=== PATIENT | male | born 1960 | race Caucasian/White ===

== ENCOUNTER 2017-04-27 10:46 | Emergency (ER) | payer MEDICAID ==
[~2017-04-27] VITALS: Ht 172.7 cm; Wt 59.0 kg
[~2017-04-27 10:46] MED LIST: ASPI-41 PO; ATOR10TA PO; CHOL100010 PO; COL100C PO; INSU100C4 SQ; LANTUS SQ; METF500T PO; NICO-687 TD; NORCO10T PO
[2017-04-27 11:10] VITALS: BP 108/69
[2017-04-27] MEDS ORDERED: HYDROcodone/acetaminophen 10/325mg tab PO ONE (11:50)
[2017-04-27] MEDS ORDERED: PENI500T2 PO (11:55)
[2017-04-27] MEDS ORDERED: HYDR-565 PO (11:55)
== END 2017-04-27 12:11 | disposition home or self-care (01) ==
LOC: ER 10:47
DX: S02.5XXA Fracture of tooth (traumatic), initial encounter for closed fracture (principal); K02.9 Dental caries, unspecified; I10 Essential (primary) hypertension; K21.9 Gastro-esophageal reflux disease without esophagitis; E11.9 Type 2 diabetes mellitus without complications; F17.200 Nicotine dependence, unspecified, uncomplicated; Z86.73 Personal history of transient ischemic attack (TIA), and cerebral infarction without residual deficits; Z90.49 Acquired absence of other specified parts of digestive tract; Z79.82 Long term (current) use of aspirin; Z79.4 Long term (current) use of insulin; Z79.84 Long term (current) use of oral hypoglycemic drugs; Z79.899 Other long term (current) drug therapy; X58.XXXA Exposure to other specified factors, initial encounter; Y93.89 Activity, other specified; Y92.89 Other specified places as the place of occurrence of the external cause; Y99.8 Other external cause status
CPT/HCPCS: 99283

== ENCOUNTER 2019-06-19 11:17 | Emergency (ER) | payer MEDICAID ==
[~2019-06-19] VITALS: Ht 172.7 cm; Wt 49.5 kg
[2019-06-19 11:38] VITALS: BP 108/73
[2019-06-19 12:19] LABS: CLARITY,URINE CLOUDY (Clear); COLOR,URINE YELLOW (Yellow); GLUCOSE, URINE >=1000 mg/dl (Neg); KETONES,URINE TRACE mg/dl (Neg); LEUKOCYTE ESTERASE ,URINE NEGATIVE (Neg); NITRITES, URINE NEGATIVE (Neg); OCCULT BLOOD,URINE MODERATE (Neg); PROTEIN,URINE TRACE mg/dl (Neg); UA COLLECTION TYPE CLN CATCH MIDSTREAM; UROBILINOGEN,URINE 0.2 E.U/dL (0.2-1.0)
[2019-06-19 12:25] LABS: BACTERIA,URINE FEW /HPF (Neg); RBC,URINE 0-2 /HPF (0-2); SQUAMOUS EPITHELIAL CELL,UR FEW /LPF (FEW); WBC CLUMPS,URINE MANY /HPF (NEGATIVE); WBC,URINE TNTC /HPF (0-4)
[2019-06-19] MEDS ORDERED: magnesium citrate 296ml oral solution PO ONE (12:35)
[2019-06-19] MEDS ORDERED: docusate sod 100mg capsule PO ONE (12:35)
[2019-06-19] MEDS ORDERED: LIDOcaine 2% 10ml TOPICAL JELLY (Urojet) TP ONE (12:50)
== END 2019-06-19 14:12 | disposition home or self-care (01) ==
LOC: ER 11:17
DX: K59.00 Constipation, unspecified (principal); R33.9 Retention of urine, unspecified; I10 Essential (primary) hypertension; K21.9 Gastro-esophageal reflux disease without esophagitis; E11.9 Type 2 diabetes mellitus without complications; Z86.73 Personal history of transient ischemic attack (TIA), and cerebral infarction without residual deficits; Z72.89 Other problems related to lifestyle; Z90.49 Acquired absence of other specified parts of digestive tract; Z79.82 Long term (current) use of aspirin; Z79.4 Long term (current) use of insulin; Z79.84 Long term (current) use of oral hypoglycemic drugs; Z79.899 Other long term (current) drug therapy
CPT/HCPCS: 51702; 76870; 81001; 87077; 87088; 87186; 99284

== ENCOUNTER 2019-06-23 08:36 | Emergency (ER) | payer MEDICAID ==
[~2019-06-23] VITALS: Ht 172.7 cm; Wt 48.7 kg
[2019-06-23 08:52] VITALS: BP 100/67
[2019-06-23] MEDS ORDERED: nitrofuran/nitrofuran macrocrysal 100 MG capsule PO ONE (09:35)
[2019-06-23] MEDS ORDERED: FLO0.4C PO (09:38)
[2019-06-23] MEDS ORDERED: NITR100C PO (09:38)
== END 2019-06-23 09:50 | disposition home or self-care (01) ==
LOC: ER 08:36
DX: T83.098A Other mechanical complication of other urinary catheter, initial encounter (principal); N39.0 Urinary tract infection, site not specified; I25.10 Atherosclerotic heart disease of native coronary artery without angina pectoris; I10 Essential (primary) hypertension; I25.2 Old myocardial infarction; K21.9 Gastro-esophageal reflux disease without esophagitis; E11.9 Type 2 diabetes mellitus without complications; F17.200 Nicotine dependence, unspecified, uncomplicated; Z90.49 Acquired absence of other specified parts of digestive tract; Z86.73 Personal history of transient ischemic attack (TIA), and cerebral infarction without residual deficits; Z72.89 Other problems related to lifestyle; Z79.82 Long term (current) use of aspirin; Z79.4 Long term (current) use of insulin; Z79.84 Long term (current) use of oral hypoglycemic drugs; Z79.899 Other long term (current) drug therapy; Y84.6 Urinary catheterization as the cause of abnormal reaction of the patient, or of later complication, without mention of misadventure at the time of the procedure; Y92.89 Other specified places as the place of occurrence of the external cause
CPT/HCPCS: 99284

== ENCOUNTER 2019-06-25 07:41 | Inpatient (IN) | payer MEDICAID ==
[2019-06-25] VITALS (10 sets, daily range): BP systolic 91–134; BP diastolic 51–84
[~2019-06-25] VITALS: Ht 172.7 cm; Wt 61.9 kg
[~2019-06-25 07:41] MED LIST changes: +FLO0.4C PO; +NITR100C PO
[2019-06-25] MEDS ORDERED: CefTRIAXone 2gm/D5W 50ml 50 ML IV ONE (08:00)
[2019-06-25] MEDS ORDERED: normal saline 1000ML IV soln IV ONE (08:00)
--- NOTE | 2019-06-25 08:04 | NUR ---
DR LINDQUIST IN ROOM TO EVAL PT. IV ACCESS AND BLOOD DRAW FOR SEPTIC WORKUP COMPLETED. PT PLACED ON HANY RIZVI.
--- NOTE | 2019-06-25 08:08 | NUR ---
PT GIVEN FLUID BOLUSE THROUGH FLUID WARMER.
[2019-06-25] MEDS ORDERED: diltiazem 5mg/ml 5ml inj. IV ONE (08:10)
[2019-06-25 08:29] LABS: BASOPHILS # (AUTO) 0.1 X10'3 (0-0.2); BASOPHILS % (AUTO) 0.4 % (0-1); EOSINOPHILS # (AUTO) 0.5 X10'3 (0-0.9); EOSINOPHILS % (AUTO) 1.9 % (0-6); HEMOGLOBIN 15.1 g/dl (14.0-17.9); LYMPHOCYTES # (AUTO) 0.3 X10'3 (1.1-4.8); LYMPHOCYTES % (AUTO) 1.3 % (21-51); MEAN CORPUSCULAR HEMOGLOBIN 30.6 PG (27.0-31.0); MEAN CORPUSCULAR HGB CONC 33.5 g/dL (33.0-36.5); MEAN CORPUSCULAR VOLUME 91.3 FL (78-98); MEAN PLATELET VOLUME 10.1 FL (7.4-10.4); MONOCYTES # (AUTO) 0.4 X10'3 (0-0.9); MONOCYTES % (AUTO) 1.7 % (2-12); NEUTROPHILS # (AUTO) 23.4 X10'3 (1.8-7.7); NEUTROPHILS % (AUTO) 94.7 % (42-75); PLATELET COUNT 313 X10'3 (140-440); RED BLOOD COUNT 4.93 X10'6 (4.70-6.10); RED CELL DISTRIBUTION WIDTH 13.1 % (11.5-14.5); WHITE BLOOD COUNT 24.7 X10'3 (4.5-11.0)
[2019-06-25 08:43] LABS: ALANINE AMINOTRANSFERASE 22 U/L (12-78); ALBUMIN/GLOBULIN RATIO 0.4 (1.1-1.5); ALKALINE PHOSPHATASE 186 IU/L (46-116); ANION GAP 22 (8-16); ASPARTATE AMINO TRANSFERASE 37 U/L (10-37); BILIRUBIN,TOTAL 0.8 MG/DL (0.1-1.0); BLOOD UREA NITROGEN 71 MG/DL (7-18); CALCIUM 10.1 MG/DL (8.5-10.1); CHLORIDE 90 MMOL/L (99-107); CREATININE 2.37 MG/DL (0.60-1.10); MAGNESIUM 2.7 MG/DL (1.5-2.4); POTASSIUM 3.6 MMOL/L (3.5-5.1); SODIUM 129 MMOL/L (135-145); TOTAL CARBON DIOXIDE 17.4 MMOL/L (24-32); TOTAL PROTEIN 7.3 G/DL (6.4-8.2); eGFR 28 ML/MIN
[2019-06-25 08:44] LABS: PARTIAL THROMBOPLASTIN TIME 34 SECONDS (22-32)
[2019-06-25 08:45] LABS: GLUCOSE 489 MG/DL (70-104)
[2019-06-25 09:13] LABS: TOTAL CELLS COUNTED 100
[2019-06-25 09:14] LABS: PLATELET ESTIMATE NORMAL; TOXIC GRANULATION 1+
[2019-06-25 09:30] LABS: CLARITY,URINE SLIGHTLY CLOUDY (Clear); COLOR,URINE YELLOW (Yellow); GLUCOSE, URINE >=1000 mg/dl (Neg); KETONES,URINE TRACE mg/dl (Neg); LEUKOCYTE ESTERASE ,URINE TRACE (Neg); NITRITES, URINE NEGATIVE (Neg); OCCULT BLOOD,URINE LARGE (Neg); PROTEIN,URINE 30 mg/dl (Neg)
[2019-06-25 09:32] LABS: UA COLLECTION TYPE FOLEY CATH
--- NOTE | 2019-06-25 09:33 | NUR ---
DR BOOKER IN ROOM TO EVAL PT FOR ADMIT.
[2019-06-25 09:37] LABS: BACTERIA,URINE 1+ /HPF (Neg); RBC,URINE 0-2 /HPF (0-2)
[2019-06-25 09:38] LABS: MUCUS STRANDS FEW /LPF (Neg); SQUAMOUS EPITHELIAL CELL,UR NONE SEEN /LPF (FEW); WBC CLUMPS,URINE FEW /HPF (NEGATIVE)
[2019-06-25 09:39] LABS: AMORPHOUS URATES 2+
[2019-06-25] MEDS ORDERED: ondansetron/PF 4mg/2ml inj IV PRN (09:45)
[2019-06-25] MEDS ORDERED: potassium Cl 20 mEq SR tablet PO PRN ×2 (09:45)
[2019-06-25] MEDS ORDERED: magnesium Cl slow-release 64mg tablet PO PRN (09:45)
[2019-06-25] MEDS ORDERED: magnesium 2GM in 50ml NS 50 ML IV PRN ×2 (09:45→21:45)
[2019-06-25] MEDS ORDERED: acetaminophen 325mg tablet PO PRN ×2 (09:45)
[2019-06-25] MEDS ORDERED: magnesium 4gm in 100ml NS 100 ML IV PRN ×2 (09:45→21:45)
[2019-06-25] MEDS ORDERED: sodium phosphate inj. 30 MMOL in dextrose 5%-water 250 ML IV PRN (09:45)
[2019-06-25] MEDS ORDERED: Neutra Phos packet PO PRN (09:45)
[2019-06-25] MEDS ORDERED: sodium phosphate inj. 15 MMOL in dextrose 5%-water 250 ML IV PRN (09:45)
[2019-06-25] MEDS ORDERED: LIDOcaine 2% 10ml TOPICAL JELLY (Urojet) TP ONE (09:45)
[2019-06-25] MEDS ORDERED: normal saline 1000ml 1,000 ML IV ONE (09:50)
[2019-06-25] MEDS: normal saline 1000ml 1,000 ML IV SCH ×2 (10:30→22:16)
[2019-06-25] MEDS: K, MAG and/or Phos replacement - Verify level? MC SCH (10:56)
[2019-06-25] MEDS ORDERED: NITR100C PO (12:11)
[2019-06-25] MEDS ORDERED: FLO0.4C PO (12:11)
--- NOTE | 2019-06-25 13:00 | NUR ---
Received report from Rita RN. Awaiting patient's arrival to the unit
--- NOTE | 2019-06-25 14:07 | NUR ---
DM Consult: Pt hx DM A1C pending at this time; last A1C 2013 admit. Addendum: 06/25/19 at [address] Amended: Links added.
[2019-06-25 14:15] LABS: HEMOGLOBIN A1C 11.8 % (4.5-6.2)
[2019-06-25] MEDS ORDERED: morphine 4 MG/ML inj SYRINge ONE (14:27)
[2019-06-25] MEDS ORDERED: dextrose ORAL solution 15 GM/59 ML bottle PO PRN ×2 (14:55)
[2019-06-25] MEDS ORDERED: MESSAGE TO PHARMACY PO ONE (14:55)
[2019-06-25] MEDS ORDERED: dextrose 50%-water 50ml dispensing syringe IV PRN (14:55)
[2019-06-25] MEDS ORDERED: morphine 2 MG/ML inj. syringe IV PRN (14:55)
[2019-06-25] MEDS ORDERED: insulin regular, human U-100 3ml vial - multi-dose SQ SCH (14:55)
[2019-06-25] MEDS ORDERED: glucagon, human recombinant 1mg kit SUBCUT PRN (14:55)
[2019-06-25] MEDS ORDERED: ringers solution, lacted 1,000 ML IV ONE (15:10)
[2019-06-25] MEDS: vancomycin/NS 1 GM ADD-VANTAGE 250 ML IV SCH (15:29)
[2019-06-25 15:38] LABS: LIPASE 296 U/L (73-393)
[2019-06-25] MEDS: piperacillin/tazo 3.375gm/50ml 50 ML IV SCH (16:51)
[2019-06-25] MEDS: insulin Lispro (HumaLOG) vial - multi-dose SQ SCH (17:31)
--- NOTE | 2019-06-25 18:26 | NUR ---
Problems reprioritized. Patient report given, questions answered & plan of care reviewed with Adela GALO.
[2019-06-25] MEDS: normal saline 1000ml 1,000 ML IV PRN ×2 (19:01→20:17)
[2019-06-25] MEDS ORDERED: albumin (Human) 5% 250ml 250 ML IV ONE ×4 (20:10→20:28)
[2019-06-25] MEDS ORDERED: acetaminophen 1,000mg/100ml IV 100 ML IV ONE (20:25)
[2019-06-25] MEDS: heparin, porcine 5000 units/ml vial SQ SCH (20:31)
[2019-06-25 21:23] LABS: BASOPHILS % (AUTO) 0.4 % (0-1); EOSINOPHILS # (AUTO) 0.1 X10'3 (0-0.9); EOSINOPHILS % (AUTO) 0.6 % (0-6); HEMATOCRIT 30.6 % (42.0-52.0); HEMOGLOBIN 10.6 g/dl (14.0-17.9); LYMPHOCYTES # (AUTO) 0.2 X10'3 (1.1-4.8); LYMPHOCYTES % (AUTO) 2.3 % (21-51); MEAN CORPUSCULAR HEMOGLOBIN 30.9 PG (27.0-31.0); MEAN CORPUSCULAR HGB CONC 34.7 g/dL (33.0-36.5); MEAN CORPUSCULAR VOLUME 88.8 FL (78-98); MEAN PLATELET VOLUME 9.1 FL (7.4-10.4); MONOCYTES # (AUTO) 0.1 X10'3 (0-0.9); MONOCYTES % (AUTO) 1.3 % (2-12); NEUTROPHILS % (AUTO) 95.4 % (42-75); PLATELET COUNT 189 X10'3 (140-440); RED BLOOD COUNT 3.45 X10'6 (4.70-6.10); WHITE BLOOD COUNT 9.4 X10'3 (4.5-11.0)
[2019-06-25 21:33] LABS: ALBUMIN 1.1 G/DL (3.4-5.0); ANION GAP 11 (8-16); BLOOD UREA NITROGEN 56 MG/DL (7-18); BUN/CREATININE RATIO 35.9 (5.4-32.0); CALCIUM 7.2 MG/DL (8.5-10.1); CHLORIDE 111 MMOL/L (99-107); CREATININE 1.56 MG/DL (0.60-1.10); GLUCOSE 89 MG/DL (70-104); MAGNESIUM 1.6 MG/DL (1.5-2.4); SODIUM 142 MMOL/L (135-145); TOTAL CARBON DIOXIDE 20.4 MMOL/L (24-32); eGFR 45 ML/MIN
[2019-06-25 21:37] LABS: POTASSIUM 2.7 MMOL/L (3.5-5.1)
[2019-06-25] MEDS ORDERED: albumin (human) 25% 100 ML IV solution IV ONE (21:45)
[2019-06-25] MEDS: potassium Cl 20mEq/100mL bag 100 ML IV PRN ×2 (21:58→23:13)
[2019-06-25] MEDS: morphine 2 MG/ML inj. syringe IV PRN (22:20)
[2019-06-26] VITALS (22 sets, daily range): BP systolic 94–135; BP diastolic 50–67
[2019-06-26] MEDS: potassium Cl 20mEq/100mL bag 100 ML IV PRN ×4 (00:19→22:53)
[2019-06-26] MEDS: piperacillin/tazo 3.375gm/50ml 50 ML IV SCH ×3 (00:40→16:54)
[2019-06-26] MEDS: dextrose 50%-water 50ml dispensing syringe IV PRN ×2 (02:27→13:07)
[2019-06-26 05:01] LABS: BASOPHILS % (AUTO) 0.1 % (0-1); EOSINOPHILS % (AUTO) 0.3 % (0-6); HEMATOCRIT 28.1 % (42.0-52.0); HEMOGLOBIN 9.8 g/dl (14.0-17.9); LYMPHOCYTES # (AUTO) 0.3 X10'3 (1.1-4.8); LYMPHOCYTES % (AUTO) 3.8 % (21-51); MEAN CORPUSCULAR HEMOGLOBIN 31.1 PG (27.0-31.0); MEAN CORPUSCULAR HGB CONC 34.7 g/dL (33.0-36.5); MEAN CORPUSCULAR VOLUME 89.5 FL (78-98); MONOCYTES # (AUTO) 0.2 X10'3 (0-0.9); MONOCYTES % (AUTO) 2.8 % (2-12); NEUTROPHILS # (AUTO) 6.4 X10'3 (1.8-7.7); PLATELET COUNT 144 X10'3 (140-440); RED BLOOD COUNT 3.14 X10'6 (4.70-6.10); RED CELL DISTRIBUTION WIDTH 13.2 % (11.5-14.5); WHITE BLOOD COUNT 6.9 X10'3 (4.5-11.0)
[2019-06-26 05:19] LABS: ALANINE AMINOTRANSFERASE 41 U/L (12-78); ALBUMIN 2.1 G/DL (3.4-5.0); ALBUMIN/GLOBULIN RATIO 0.8 (1.1-1.5); ALKALINE PHOSPHATASE 120 IU/L (46-116); ANION GAP 13 (8-16); ASPARTATE AMINO TRANSFERASE 115 U/L (10-37); BILIRUBIN,TOTAL 0.9 MG/DL (0.1-1.0); BLOOD UREA NITROGEN 51 MG/DL (7-18); BUN/CREATININE RATIO 35.4 (5.4-32.0); CALCIUM 7.6 MG/DL (8.5-10.1); CHLORIDE 112 MMOL/L (99-107); CREATININE 1.44 MG/DL (0.60-1.10); GLUCOSE 124 MG/DL (70-104); MAGNESIUM 2.9 MG/DL (1.5-2.4); PHOSPHORUS 2.6 MG/DL (2.3-4.5); POTASSIUM 3.5 MMOL/L (3.5-5.1); SODIUM 143 MMOL/L (135-145); TOTAL CARBON DIOXIDE 17.7 MMOL/L (24-32); TOTAL PROTEIN 4.9 G/DL (6.4-8.2); eGFR 50 ML/MIN
--- NOTE | 2019-06-26 06:20 | NUR ---
Received report from Lili GALO.
[2019-06-26] MEDS: K, MAG and/or Phos replacement - Verify level? MC SCH (08:00)
[2019-06-26] MEDS: heparin, porcine 5000 units/ml vial SQ SCH ×2 (08:25→20:40)
[2019-06-26] MEDS: pantoprazole 40 MG vial IV SCH (08:25)
--- NOTE | 2019-06-26 11:37 | NUR ---
DM Consult: A1C 11.8. Pt admit w/ ALOC, sepsis, UTI, dehydration, GLU 366 hx T2DM, elevated anion gap, trace ketones, moderate acetone levels, and hx etoh. Family reports not been eating recently and losing wt possibly r/t etoh abuse. MARIA T d/w regarding thiamin/folic/MVI given hx; MD is agreeable. Pt ALOC remains advanced to pureed/thin/carb controlled diet per FINANCE CONTROLLER today. No BM yet this admit. Will monitor for PO diet tolerance and additional protein needs. DM ed deferred until pt more appropriate. Rec: 1. continue pureed/thin/carb controlled diet per FINANCE CONTROLLER/MD 2. monitor for ONS needs 3. bowel care as needed 4. wt per rx 5. DM ed IF pt becomes more appropriate prior to d/c Addendum: 06/26/19 at [address] Amended: Links added.
[2019-06-26] MEDS: vancomycin/NS 1 GM ADD-VANTAGE 250 ML IV SCH (12:51)
[2019-06-26] MEDS: normal saline 1000ml 1,000 ML IV SCH (12:54)
[2019-06-26] MEDS ORDERED: ziprasidone IM 20mg inj **IM only IM ONE (17:40)
--- NOTE | 2019-06-26 18:22 | NUR ---
Gave report to Yuniel GALO.
[2019-06-26] MEDS: dextrose 5%-normal saline 1,000 ML IV SCH (18:42)
[2019-06-26] MEDS: morphine 2 MG/ML inj. syringe IV PRN (18:43)
[2019-06-26] MEDS: lactobacillus rhamnosus 10,000 MMU CELLS/CAPSULE PO SCH (20:00)
--- NOTE | 2019-06-26 20:00 | NUR ---
Informed Emilio Gong NP of decreased platelet count. Instructed to go ahead and give subQ heparin.
[2019-06-27] VITALS (21 sets, daily range): BP systolic 93–126; BP diastolic 42–66
[2019-06-27] MEDS: piperacillin/tazo 3.375gm/50ml 50 ML IV SCH ×3 (00:26→17:09)
[2019-06-27] MEDS: potassium Cl 20mEq/100mL bag 100 ML IV PRN ×2 (00:26→02:13)
[2019-06-27] MEDS ORDERED: LORazepam 2 mg/ml vial IV ONE (01:50)
[2019-06-27 03:46] LABS: LYMPHOCYTES # (AUTO) 0.4 X10'3 (1.1-4.8); MEAN PLATELET VOLUME 9.4 FL (7.4-10.4); NEUTROPHILS % (AUTO) 94.5 % (42-75)
[2019-06-27 03:48] LABS: BASOPHILS % (AUTO) 0.1 % (0-1); EOSINOPHILS % (AUTO) 0.1 % (0-6); HEMATOCRIT 29.4 % (42.0-52.0); HEMOGLOBIN 10.1 g/dl (14.0-17.9); MEAN CORPUSCULAR HEMOGLOBIN 30.5 PG (27.0-31.0); MEAN CORPUSCULAR HGB CONC 34.3 g/dL (33.0-36.5); MONOCYTES # (AUTO) 0.3 X10'3 (0-0.9); MONOCYTES % (AUTO) 2.3 % (2-12); NEUTROPHILS # (AUTO) 11.7 X10'3 (1.8-7.7); PLATELET COUNT 93 X10'3 (140-440); RED CELL DISTRIBUTION WIDTH 13.3 % (11.5-14.5); WHITE BLOOD COUNT 12.4 X10'3 (4.5-11.0)
[2019-06-27 03:59] LABS: ALANINE AMINOTRANSFERASE 48 U/L (12-78); ALBUMIN 1.5 G/DL (3.4-5.0); ALBUMIN/GLOBULIN RATIO 0.5 (1.1-1.5); ALKALINE PHOSPHATASE 114 IU/L (46-116); ANION GAP 16 (8-16); ASPARTATE AMINO TRANSFERASE 63 U/L (10-37); BILIRUBIN,TOTAL 0.6 MG/DL (0.1-1.0); BLOOD UREA NITROGEN 47 MG/DL (7-18); BUN/CREATININE RATIO 28.7 (5.4-32.0); CALCIUM 7.9 MG/DL (8.5-10.1); CHLORIDE 118 MMOL/L (99-107); CREATININE 1.64 MG/DL (0.60-1.10); GLUCOSE 213 MG/DL (70-104); MAGNESIUM 2.4 MG/DL (1.5-2.4); PHOSPHORUS 2.1 MG/DL (2.3-4.5); POTASSIUM 3.8 MMOL/L (3.5-5.1); SODIUM 149 MMOL/L (135-145); TOTAL CARBON DIOXIDE 15.1 MMOL/L (24-32); TOTAL PROTEIN 4.7 G/DL (6.4-8.2); eGFR 43 ML/MIN
--- NOTE | 2019-06-27 06:31 | NUR ---
Patient in room ICU 2044. I have received report from IRAJ Brice and had the opportunity to ask questions and assume patient care.
[2019-06-27] MEDS: pantoprazole 40 MG vial IV SCH (07:46)
[2019-06-27] MEDS: lactobacillus rhamnosus 10,000 MMU CELLS/CAPSULE PO SCH ×2 (07:48→19:48)
[2019-06-27] MEDS: K, MAG and/or Phos replacement - Verify level? MC SCH (07:48)
[2019-06-27] MEDS: tamsulosin 0.4mg capsule PO SCH (07:48)
[2019-06-27] MEDS: dextrose 5%-normal saline 1,000 ML IV SCH (07:56)
[2019-06-27] MEDS: insulin Lispro (HumaLOG) vial - multi-dose SQ SCH (08:25)
[2019-06-27] MEDS ORDERED: lactulose 20gm/30ml cup PO PRN (09:45)
--- NOTE | 2019-06-27 10:30 | NUR ---
New orders from [facility] to place a Corepak, order an ultrasound to r/o clot to left arm r/t possible IV infiltrates, remove Amrit central line.
[2019-06-27] MEDS: heparin, porcine 5000 units/ml vial SQ SCH ×2 (12:02→20:00)
--- NOTE | 2019-06-27 13:23 | NUR ---
TF Consult: Pt too ALOC to tolerate PO per MD; NGTF to start today. Corpak has been placed pending patency at this time. Will include GRV recs in case to remain in stomach and not post-pyloric. MD is agreeable to PO thiamin/folic given pt etoh hx once NG feeds start. No BM yet this admit. EN recs below; will monitor for tolerance. Rec: 1. NGTF per MD using Glucerna 1.2 at 60ml/hr goal; to provide 1440ml fluid, 1166ml free water, 1728kcals, and 86g protein. 2. additional water flush 200ml Q4 3. PALB Q /; daily wts 4. routine bowel care 5. thiamin/folic/MVI given etoh hx 6. monitor for EN tolerance 7. advance diet as medically indicated to carb controlled/heart healthy Addendum: 06/27/19 at [address] Amended: Links added.
--- NOTE | 2019-06-27 14:11 | NUR ---
Nutrition consult: Pt TF recs have been placed pending corpak verification. Pt hx T2DM A1C <7; nutrition concerns addressed in prior RD note. Addendum: 06/27/19 at [address] Amended: Links added. Addendum: 06/27/19 at [address] CORRECTION: Nutrition consult: Pt TF recs have been placed pending corpak verification. Pt hx T2DM A1C 11.8 and not appropriate for ed at this time; nutrition concerns addressed in prior RD note.
--- NOTE | 2019-06-27 14:30 | NUR ---
Placed protocol order for [facility] for corepak placement
[2019-06-27] MEDS: vancomycin/NS 1 GM ADD-VANTAGE 250 ML IV SCH (15:16)
[2019-06-27] MEDS ORDERED: dextrose ORAL solution 15 GM/59 ML bottle NG PRN ×2 (15:28)
[2019-06-27] MEDS ORDERED: lactulose 20gm/30ml cup NG PRN (15:28)
[2019-06-27] MEDS ORDERED: acetaminophen 325mg tablet NG PRN (15:28)
[2019-06-27] MEDS ORDERED: Neutra Phos packet NG PRN (15:29)
[2019-06-27] MEDS ORDERED: potassium Cl 20 mEq SR tablet NG PRN ×2 (15:29→15:30)
[2019-06-27] MEDS: dextrose 5%-water 1,000 ML IV SCH (18:54)
--- NOTE | 2019-06-27 19:12 | NUR ---
Problems reprioritized. Patient report given, questions answered & plan of care reviewed with IRAJ Brice.
[2019-06-27] MEDS: dexmedetomidin/NS 400mcg/100ml 100 ML IV SCH (19:15)
[2019-06-27] MEDS: insulin regular, human U-100 3ml vial - multi-dose SQ SCH (20:07)
[2019-06-27] MEDS ORDERED: thiamine inj. 100 MG in normal saline 100ml IV soln 100 ML IV ONE (21:55)
[2019-06-27] MEDS ORDERED: haloperidol lactate 5mg/ml inj IM PRN (21:55)
[2019-06-27] MEDS ORDERED: haloperidol 5mg tablet PO PRN (21:55)
[2019-06-27] MEDS ORDERED: LORazepam 1 MG tablet PO PRN (21:55)
[2019-06-27] MEDS ORDERED: thiamine 100mg/ml 2ml inj. IV ONE (22:00)
[2019-06-27] MEDS: LORazepam 2 mg/ml vial IV PRN (22:18)
[2019-06-28] VITALS (24 sets, daily range): BP systolic 77–131; BP diastolic 43–84
[2019-06-28] MEDS: piperacillin/tazo 3.375gm/50ml 50 ML IV SCH ×3 (00:43→16:25)
[2019-06-28] MEDS ORDERED: albumin (Human) 5% 250ml 250 ML IV ONE (01:45)
[2019-06-28] MEDS: insulin regular, human U-100 3ml vial - multi-dose SQ SCH ×4 (02:19→21:07)
[2019-06-28] MEDS: dextrose 5%-water 1,000 ML IV SCH ×3 (05:00→22:33)
[2019-06-28 05:39] LABS: ALANINE AMINOTRANSFERASE 32 U/L (12-78); ALBUMIN 1.4 G/DL (3.4-5.0); ALBUMIN/GLOBULIN RATIO 0.4 (1.1-1.5); ALKALINE PHOSPHATASE 168 IU/L (46-116); AMYLASE 6 U/L (25-115); ANION GAP 12 (8-16); ASPARTATE AMINO TRANSFERASE 32 U/L (10-37); BILIRUBIN,TOTAL 0.7 MG/DL (0.1-1.0); BLOOD UREA NITROGEN 49 MG/DL (7-18); BUN/CREATININE RATIO 27.1 (5.4-32.0); CALCIUM 8.2 MG/DL (8.5-10.1); CHLORIDE 121 MMOL/L (99-107); CREATININE 1.81 MG/DL (0.60-1.10); GLUCOSE 220 MG/DL (70-104); LIPASE < 50 U/L (73-393); MAGNESIUM 2.1 MG/DL (1.5-2.4); PHOSPHORUS 2.6 MG/DL (2.3-4.5); POTASSIUM 3.2 MMOL/L (3.5-5.1); SODIUM 152 MMOL/L (135-145); TOTAL CARBON DIOXIDE 19.2 MMOL/L (24-32); TOTAL PROTEIN 4.9 G/DL (6.4-8.2); eGFR 38 ML/MIN
[2019-06-28 05:58] LABS: BASOPHILS % (AUTO) 0.1 % (0-1); EOSINOPHILS % (AUTO) 0.1 % (0-6); HEMATOCRIT 30.7 % (42.0-52.0); HEMOGLOBIN 10.6 g/dl (14.0-17.9); LYMPHOCYTES # (AUTO) 0.8 X10'3 (1.1-4.8); LYMPHOCYTES % (AUTO) 4.2 % (21-51); MEAN CORPUSCULAR HEMOGLOBIN 30.3 PG (27.0-31.0); MEAN CORPUSCULAR HGB CONC 34.4 g/dL (33.0-36.5); MEAN CORPUSCULAR VOLUME 88.1 FL (78-98); MEAN PLATELET VOLUME 9.9 FL (7.4-10.4); MONOCYTES # (AUTO) 0.4 X10'3 (0-0.9); MONOCYTES % (AUTO) 1.9 % (2-12); NEUTROPHILS # (AUTO) 17.1 X10'3 (1.8-7.7); NEUTROPHILS % (AUTO) 93.7 % (42-75); RED BLOOD COUNT 3.48 X10'6 (4.70-6.10); RED CELL DISTRIBUTION WIDTH 13.6 % (11.5-14.5); WHITE BLOOD COUNT 18.2 X10'3 (4.5-11.0)
[2019-06-28 05:59] LABS: PLATELET COUNT 49 X10'3 (140-440)
--- NOTE | 2019-06-28 06:20 | NUR ---
Patient in room ICU 2044. I have received report from IRAJ Brice and had the opportunity to ask questions and assume patient care.
[2019-06-28 07:03] LABS: PLATELET ESTIMATE DECREASED; TOTAL CELLS COUNTED 100
[2019-06-28] MEDS: K, MAG and/or Phos replacement - Verify level? MC SCH (07:03)
[2019-06-28] MEDS: tamsulosin 0.4mg capsule PO SCH (08:00)
[2019-06-28] MEDS: POTASSIUM BICARB 20meq eff tab 20 MEQ TABLET.EFF NG PRN ×3 (08:30→17:48)
[2019-06-28] MEDS: thiamine 100mg tablet PO SCH (08:30)
[2019-06-28] MEDS: multivitamins, therapeutics tablet PO SCH (08:30)
[2019-06-28] MEDS: lactobacillus rhamnosus 10,000 MMU CELLS/CAPSULE PO SCH ×2 (08:30→20:24)
[2019-06-28] MEDS: folic acid 1mg tablet PO SCH (08:30)
[2019-06-28] MEDS: pantoprazole 40 MG vial IV SCH (08:45)
[2019-06-28] MEDS: dexmedetomidin/NS 400mcg/100ml 100 ML IV SCH (09:41)
[2019-06-28] MEDS ORDERED: flumazenil 0.1 mg/ml inj. IV ONE (10:25)
[2019-06-28] MEDS ORDERED: VANCOMYCIN LEVEL IV NR (12:30)
[2019-06-28] MEDS ORDERED: furosemide 10 MG/1 ML 10ml inj IV ONE (13:55)
[2019-06-28] MEDS: vancomycin/NS 1 GM ADD-VANTAGE 250 ML IV SCH (14:00)
--- NOTE | 2019-06-28 18:23 | NUR ---
Problems reprioritized. Patient report given, questions answered & plan of care reviewed with IRAJ Leblanc.
[2019-06-28] MEDS: morphine 2 MG/ML inj. syringe IV PRN (20:25)
[2019-06-28] MEDS: insulin glargine (Lantus) pen - multi-dose SQ SCH (22:30)
[2019-06-29] VITALS (25 sets, daily range): BP systolic 80–138; BP diastolic 44–74
[2019-06-29] MEDS: piperacillin/tazo 3.375gm/50ml 50 ML IV SCH ×2 (00:40→08:40)
[2019-06-29] MEDS: acetaminophen 325mg tablet NG PRN ×2 (00:41→16:45)
[2019-06-29] MEDS: dextrose 5%-water 1,000 ML IV SCH (02:00)
[2019-06-29] MEDS: dexmedetomidin/NS 400mcg/100ml 100 ML IV SCH ×2 (02:27→19:13)
[2019-06-29] MEDS: morphine 2 MG/ML inj. syringe IV PRN ×2 (03:15→22:28)
[2019-06-29 06:12] LABS: ALANINE AMINOTRANSFERASE 34 U/L (12-78); ALBUMIN 1.1 G/DL (3.4-5.0); ALBUMIN/GLOBULIN RATIO 0.3 (1.1-1.5); ALKALINE PHOSPHATASE 227 IU/L (46-116); AMYLASE 7 U/L (25-115); ANION GAP 10 (8-16); ASPARTATE AMINO TRANSFERASE 31 U/L (10-37); BLOOD UREA NITROGEN 52 MG/DL (7-18); BUN/CREATININE RATIO 27.1 (5.4-32.0); CALCIUM 7.6 MG/DL (8.5-10.1); CHLORIDE 109 MMOL/L (99-107); CREATININE 1.92 MG/DL (0.60-1.10); GLUCOSE 171 MG/DL (70-104); LIPASE < 50 U/L (73-393); MAGNESIUM 1.7 MG/DL (1.5-2.4); PHOSPHORUS 2.1 MG/DL (2.3-4.5); POTASSIUM 3.1 MMOL/L (3.5-5.1); SODIUM 140 MMOL/L (135-145); TOTAL CARBON DIOXIDE 20.9 MMOL/L (24-32); TOTAL PROTEIN 4.5 G/DL (6.4-8.2); eGFR 36 ML/MIN
--- NOTE | 2019-06-29 06:37 | NUR ---
Problems reprioritized. Patient report given, questions answered & plan of care reviewed with Divya GALO.
[2019-06-29] MEDS: tamsulosin 0.4mg capsule PO SCH (08:00)
[2019-06-29] MEDS: K, MAG and/or Phos replacement - Verify level? MC SCH (08:00)
[2019-06-29 08:01] LABS: BASOPHILS % (AUTO) 0.1 % (0-1); EOSINOPHILS # (AUTO) 0.1 X10'3 (0-0.9); EOSINOPHILS % (AUTO) 0.4 % (0-6); HEMOGLOBIN 10.6 g/dl (14.0-17.9); LYMPHOCYTES # (AUTO) 0.8 X10'3 (1.1-4.8); LYMPHOCYTES % (AUTO) 5.7 % (21-51); MEAN CORPUSCULAR HEMOGLOBIN 30.1 PG (27.0-31.0); MEAN CORPUSCULAR HGB CONC 34.2 g/dL (33.0-36.5); MEAN PLATELET VOLUME 9.3 FL (7.4-10.4); MONOCYTES # (AUTO) 0.4 X10'3 (0-0.9); MONOCYTES % (AUTO) 2.6 % (2-12); NEUTROPHILS # (AUTO) 12.5 X10'3 (1.8-7.7); NEUTROPHILS % (AUTO) 91.2 % (42-75); RED BLOOD COUNT 3.53 X10'6 (4.70-6.10); RED CELL DISTRIBUTION WIDTH 13.7 % (11.5-14.5); WHITE BLOOD COUNT 13.8 X10'3 (4.5-11.0)
[2019-06-29 08:34] LABS: PLATELET COUNT 14 X10'3 (140-440)
[2019-06-29] MEDS: folic acid 1mg tablet PO SCH (08:45)
[2019-06-29] MEDS: multivitamins, therapeutics tablet PO SCH (08:46)
[2019-06-29] MEDS: lactobacillus rhamnosus 10,000 MMU CELLS/CAPSULE PO SCH ×2 (08:46→20:00)
[2019-06-29] MEDS: pantoprazole 40 MG vial IV SCH (08:46)
[2019-06-29] MEDS: thiamine 100mg tablet PO SCH (08:46)
[2019-06-29] MEDS: insulin regular, human U-100 3ml vial - multi-dose SQ SCH ×3 (09:07→21:14)
[2019-06-29] MEDS ORDERED: potassium Cl 20mEq/100mL bag 100 ML IV PRN (09:15)
[2019-06-29] MEDS ORDERED: potassium Cl 20 mEq SR tablet PO PRN ×2 (09:15)
[2019-06-29] MEDS: potassium CL 10mEq/100ml bag 100 ML IV PRN ×4 (10:56→15:19)
--- NOTE | 2019-06-29 11:41 | NUR ---
TF consult: Per [facility] Corpak remains in the stomach, residuals will need to be checked Q4H. Discussed consult with RN who reports TF currently running at 30 mL/hr and to be advanced by 10 mL Q12H as tolerated per MD. Goal rate remains the same at 60 mL/hr. Patient's brother reports that pt drinks EtOH daily per MD note, pt now receiving routine Thiamine, Folic acid, and MVI. Pt with low Medhat of 12. Per physical assessment pt with left arm 2+ edema and skin is intact. Pt remains confused and A/O x 1, DM education not appropriate at this time. LBM 06/26. Will continue to follow closely. Rec: 1. NGTF using Glucerna 1.2 at 60ml/hr goal; to provide 1440ml fluid, 1166ml free water, 1728kcals, and 86g protein. TF to advance by 10 mL/hr Q12H as tolerated per MD 2. additional water flush 200ml Q4H 3. PALB Q /; daily wts 4. routine bowel care 5. routine thiamine/folic/MVI given EtOH hx 6. monitor for EN tolerance 7. advance diet as medically indicated to carb controlled/heart healthy Addendum: 06/29/19 at [address] Amended: Links added.
[2019-06-29] MEDS: vancomycin/NS 1 GM ADD-VANTAGE 250 ML IV SCH (14:13)
[2019-06-29] MEDS ORDERED: piperacillin/tazo 3.375gm/50ml 50 ML IV SCH (16:00)
[2019-06-29] MEDS: furosemide 10 MG/1 ML 10ml inj IV SCH ×2 (16:24→20:00)
[2019-06-29] MEDS: CLINDAMYCIN/D5W 900mg/50ml 50 ML IV SCH (16:40)
[2019-06-29 17:32] LABS: BASOPHILS % (AUTO) 0.1 % (0-1); EOSINOPHILS % (AUTO) 0.3 % (0-6); HEMOGLOBIN 10.7 g/dl (14.0-17.9); LYMPHOCYTES # (AUTO) 0.7 X10'3 (1.1-4.8); MEAN CORPUSCULAR HGB CONC 34.5 g/dL (33.0-36.5); MEAN CORPUSCULAR VOLUME 86.8 FL (78-98); MONOCYTES # (AUTO) 0.3 X10'3 (0-0.9); MONOCYTES % (AUTO) 1.8 % (2-12); NEUTROPHILS # (AUTO) 13.1 X10'3 (1.8-7.7); NEUTROPHILS % (AUTO) 92.8 % (42-75); RED BLOOD COUNT 3.57 X10'6 (4.70-6.10); RED CELL DISTRIBUTION WIDTH 13.7 % (11.5-14.5); WHITE BLOOD COUNT 14.1 X10'3 (4.5-11.0)
[2019-06-29 17:43] LABS: PLATELET COUNT 41 X10'3 (140-440)
--- NOTE | 2019-06-29 19:00 | NUR ---
Patient in room ICU 2044. I have received report from am rn and had the opportunity to ask questions and assume patient care.
[2019-06-29] MEDS: insulin glargine (Lantus) pen - multi-dose SQ SCH (21:15)
[2019-06-29] MEDS: LORazepam 2 mg/ml vial IV PRN (23:27)
[2019-06-30] VITALS (23 sets, daily range): BP systolic 76–105; BP diastolic 33–60
[2019-06-30] MEDS: CLINDAMYCIN/D5W 900mg/50ml 50 ML IV SCH ×3 (01:45→15:23)
[2019-06-30] MEDS: dextrose 50%-water 50ml dispensing syringe IV PRN (01:51)
[2019-06-30 05:44] LABS: BASOPHILS % (AUTO) 0.2 % (0-1); EOSINOPHILS % (AUTO) 0.1 % (0-6); HEMATOCRIT 29.9 % (42.0-52.0); HEMOGLOBIN 10.3 g/dl (14.0-17.9); LYMPHOCYTES # (AUTO) 0.7 X10'3 (1.1-4.8); LYMPHOCYTES % (AUTO) 5.4 % (21-51); MEAN CORPUSCULAR HEMOGLOBIN 29.9 PG (27.0-31.0); MEAN CORPUSCULAR HGB CONC 34.4 g/dL (33.0-36.5); MONOCYTES # (AUTO) 0.3 X10'3 (0-0.9); MONOCYTES % (AUTO) 2.2 % (2-12); NEUTROPHILS # (AUTO) 12.4 X10'3 (1.8-7.7); NEUTROPHILS % (AUTO) 92.1 % (42-75); RED BLOOD COUNT 3.43 X10'6 (4.70-6.10); RED CELL DISTRIBUTION WIDTH 13.7 % (11.5-14.5); WHITE BLOOD COUNT 13.4 X10'3 (4.5-11.0)
--- NOTE | 2019-06-30 06:00 | NUR ---
Patient in room ICU 2044. I have received report from Al GALO and had the opportunity to ask questions and assume patient care.
[2019-06-30 06:10] LABS: PLATELET COUNT 30 X10'3 (140-440)
[2019-06-30 06:16] LABS: ALANINE AMINOTRANSFERASE 39 U/L (12-78); ALBUMIN 1.3 G/DL (3.4-5.0); ALBUMIN/GLOBULIN RATIO 0.4 (1.1-1.5); ALKALINE PHOSPHATASE 292 IU/L (46-116); AMYLASE 9 U/L (25-115); ANION GAP 11 (8-16); ASPARTATE AMINO TRANSFERASE 43 U/L (10-37); BILIRUBIN,TOTAL 1.2 MG/DL (0.1-1.0); BLOOD UREA NITROGEN 58 MG/DL (7-18); CALCIUM 7.8 MG/DL (8.5-10.1); CHLORIDE 108 MMOL/L (99-107); GLUCOSE 76 MG/DL (70-104); LIPASE < 50 U/L (73-393); MAGNESIUM 1.8 MG/DL (1.5-2.4); PHOSPHORUS 2.9 MG/DL (2.3-4.5); SODIUM 142 MMOL/L (135-145); TOTAL CARBON DIOXIDE 23.5 MMOL/L (24-32); eGFR 34 ML/MIN
[2019-06-30 06:19] LABS: POTASSIUM 2.9 MMOL/L (3.5-5.1)
[2019-06-30] MEDS: pantoprazole 40 MG vial IV SCH (07:37)
[2019-06-30] MEDS: folic acid 1mg tablet PO SCH (07:38)
[2019-06-30] MEDS: POTASSIUM BICARB 20meq eff tab 20 MEQ TABLET.EFF NG PRN ×3 (07:38→16:33)
[2019-06-30] MEDS: thiamine 100mg tablet PO SCH (07:39)
[2019-06-30] MEDS: lactobacillus rhamnosus 10,000 MMU CELLS/CAPSULE PO SCH ×2 (07:39→20:40)
[2019-06-30] MEDS: multivitamins, therapeutics tablet PO SCH (07:39)
[2019-06-30] MEDS: tamsulosin 0.4mg capsule PO SCH (07:41)
[2019-06-30] MEDS: K, MAG and/or Phos replacement - Verify level? MC SCH (07:58)
--- NOTE | 2019-06-30 08:00 | NUR ---
Holding AM dose of 60mg Lasix as patient BP is currently 80s/30s. Will speak to Dr. Varela regarding holding medication or continuing use.
[2019-06-30 08:13] LABS: PLATELET ESTIMATE DECREASED; TOTAL CELLS COUNTED 100
[2019-06-30 08:14] LABS: TOXIC GRANULATION 3+
[2019-06-30] MEDS: furosemide 10 MG/1 ML 10ml inj IV SCH (09:20)
[2019-06-30] MEDS ORDERED: albumin (human) 25% 100 ML IV solution IV ONE (10:15)
--- NOTE | 2019-06-30 10:30 | NUR ---
AM dose of Lasix given after speaking to Dr. Varela. Informed him about marginal blood pressures and he instructed to go ahead and give the medication as ordered. Initially gave 20mg of Lasix per order (04/12) and waited 20 min to determine how patient would tolerate. Gave 20mg at the 30min demetrius the last 20mg 20minutes after that so entire dose was administered between 0915 and 1000. Patient BP did not tolerate well and ended up 70s/30s but HR did not fluctuate. Albumin was ordered and given, patient tolerated well, BP came up to high 80s-90s systolically which is where patient has been.
[2019-06-30] MEDS: morphine 2 MG/ML inj. syringe IV PRN ×2 (10:34→15:21)
[2019-06-30] MEDS: dexmedetomidin/NS 400mcg/100ml 100 ML IV SCH (11:18)
[2019-06-30] MEDS: vancomycin/NS 1 GM ADD-VANTAGE 250 ML IV SCH (12:10)
[2019-06-30] MEDS: insulin glargine (Lantus) pen - multi-dose SQ SCH (20:47)
[2019-06-30] MEDS: insulin regular, human U-100 3ml vial - multi-dose SQ SCH (20:48)
[2019-06-30 21:00] LABS: MAGNESIUM 1.8 MG/DL (1.5-2.4); POTASSIUM 4.1 MMOL/L (3.5-5.1)
[2019-07-01] VITALS (24 sets, daily range): BP systolic 78–96; BP diastolic 42–57
[2019-07-01] MEDS: CLINDAMYCIN/D5W 900mg/50ml 50 ML IV SCH ×2 (00:34→07:24)
[2019-07-01] MEDS: morphine 2 MG/ML inj. syringe IV PRN ×2 (00:35→23:53)
[2019-07-01] MEDS: insulin regular, human U-100 3ml vial - multi-dose SQ SCH ×4 (02:22→20:02)
[2019-07-01] MEDS: dexmedetomidin/NS 400mcg/100ml 100 ML IV SCH (04:45)
[2019-07-01 05:51] LABS: BASOPHILS % (AUTO) 0.2 % (0-1); EOSINOPHILS % (AUTO) 0.3 % (0-6); HEMATOCRIT 26.9 % (42.0-52.0); HEMOGLOBIN 9.3 g/dl (14.0-17.9); LYMPHOCYTES # (AUTO) 0.5 X10'3 (1.1-4.8); MEAN CORPUSCULAR HEMOGLOBIN 29.8 PG (27.0-31.0); MEAN CORPUSCULAR HGB CONC 34.5 g/dL (33.0-36.5); MEAN CORPUSCULAR VOLUME 86.5 FL (78-98); MEAN PLATELET VOLUME 10.2 FL (7.4-10.4); MONOCYTES # (AUTO) 0.2 X10'3 (0-0.9); MONOCYTES % (AUTO) 2.6 % (2-12); NEUTROPHILS % (AUTO) 89.9 % (42-75); RED CELL DISTRIBUTION WIDTH 13.7 % (11.5-14.5); WHITE BLOOD COUNT 7.7 X10'3 (4.5-11.0)
[2019-07-01 06:01] LABS: ALANINE AMINOTRANSFERASE 29 U/L (12-78); ALBUMIN 1.4 G/DL (3.4-5.0); ALBUMIN/GLOBULIN RATIO 0.4 (1.1-1.5); ALKALINE PHOSPHATASE 286 IU/L (46-116); AMYLASE 8 U/L (25-115); ANION GAP 10 (8-16); ASPARTATE AMINO TRANSFERASE 27 U/L (10-37); BLOOD UREA NITROGEN 65 MG/DL (7-18); BUN/CREATININE RATIO 31.3 (5.4-32.0); CALCIUM 7.9 MG/DL (8.5-10.1); CHLORIDE 109 MMOL/L (99-107); CREATININE 2.08 MG/DL (0.60-1.10); GLUCOSE 116 MG/DL (70-104); LIPASE < 50 U/L (73-393); MAGNESIUM 1.9 MG/DL (1.5-2.4); PHOSPHORUS 3.6 MG/DL (2.3-4.5); POTASSIUM 3.3 MMOL/L (3.5-5.1); PREALBUMIN 5.1 MG/DL (19-36); SODIUM 147 MMOL/L (135-145); TOTAL CARBON DIOXIDE 28.4 MMOL/L (24-32); TOTAL PROTEIN 5.3 G/DL (6.4-8.2); eGFR 33 ML/MIN
[2019-07-01 06:07] LABS: PLATELET COUNT 43 X10'3 (140-440)
--- NOTE | 2019-07-01 06:44 | NUR ---
Patient in room ICU 2044. I have received report from IRAJ Betts and had the opportunity to ask questions and assume patient care.
[2019-07-01] MEDS: folic acid 1mg tablet PO SCH (07:24)
[2019-07-01] MEDS: lactobacillus rhamnosus 10,000 MMU CELLS/CAPSULE PO SCH ×2 (07:24→20:00)
[2019-07-01] MEDS: multivitamins, therapeutics tablet PO SCH (07:24)
[2019-07-01] MEDS: thiamine 100mg tablet PO SCH (07:24)
[2019-07-01] MEDS: tamsulosin 0.4mg capsule PO SCH (07:24)
[2019-07-01] MEDS: pantoprazole 40 MG vial IV SCH (07:24)
[2019-07-01] MEDS: K, MAG and/or Phos replacement - Verify level? MC SCH (08:00)
[2019-07-01] MEDS: POTASSIUM BICARB 20meq eff tab 20 MEQ TABLET.EFF NG PRN ×3 (10:05→17:43)
[2019-07-01] MEDS: vancomycin/NS 1 GM ADD-VANTAGE 250 ML IV SCH (14:09)
--- NOTE | 2019-07-01 16:00 | NUR ---
Dr. Varela spoke with son and decided to wait 24 hours to put pt on CC to see if he improves any more.
[2019-07-01] MEDS: clindamycin-Cleocin 900mg/D5W 50 ML IV SCH ×2 (16:18→23:39)
[2019-07-01] MEDS: acetylcysteine 200 MG/ml 4ml vial INH SCH ×3 (17:21→23:03)
[2019-07-01] MEDS: furosemide 10 MG/1 ML 10ml inj IV SCH (20:00)
[2019-07-01] MEDS: insulin glargine (Lantus) pen - multi-dose SQ SCH (20:04)
[2019-07-01] MEDS: albuterol 2.5 MG/3 ML nebule NEB SCH ×2 (20:18→23:03)
[2019-07-01] MEDS: acetaminophen 325mg tablet NG PRN (23:53)
[2019-07-02] VITALS (24 sets, daily range): BP systolic 78–100; BP diastolic 45–63
[2019-07-02] MEDS: insulin regular, human U-100 3ml vial - multi-dose SQ SCH ×4 (02:50→21:12)
[2019-07-02] MEDS: acetylcysteine 200 MG/ml 4ml vial INH SCH ×6 (03:47→23:13)
[2019-07-02] MEDS: albuterol 2.5 MG/3 ML nebule NEB SCH ×6 (03:47→23:13)
[2019-07-02 05:16] LABS: BASOPHILS % (AUTO) 0.2 % (0-1); EOSINOPHILS % (AUTO) 0.4 % (0-6); HEMATOCRIT 25.4 % (42.0-52.0); LYMPHOCYTES # (AUTO) 0.6 X10'3 (1.1-4.8); LYMPHOCYTES % (AUTO) 9.2 % (21-51); MEAN CORPUSCULAR HEMOGLOBIN 30.3 PG (27.0-31.0); MEAN CORPUSCULAR HGB CONC 35.3 g/dL (33.0-36.5); MEAN CORPUSCULAR VOLUME 85.7 FL (78-98); MEAN PLATELET VOLUME 10.3 FL (7.4-10.4); MONOCYTES # (AUTO) 0.2 X10'3 (0-0.9); MONOCYTES % (AUTO) 3.3 % (2-12); NEUTROPHILS # (AUTO) 5.5 X10'3 (1.8-7.7); NEUTROPHILS % (AUTO) 86.9 % (42-75); PLATELET COUNT 60 X10'3 (140-440); RED BLOOD COUNT 2.96 X10'6 (4.70-6.10); RED CELL DISTRIBUTION WIDTH 13.6 % (11.5-14.5); WHITE BLOOD COUNT 6.3 X10'3 (4.5-11.0)
[2019-07-02 05:32] LABS: ALANINE AMINOTRANSFERASE 24 U/L (12-78); ALBUMIN 1.3 G/DL (3.4-5.0); ALBUMIN/GLOBULIN RATIO 0.3 (1.1-1.5); ALKALINE PHOSPHATASE 389 IU/L (46-116); AMYLASE 11 U/L (25-115); ANION GAP 4 (8-16); ASPARTATE AMINO TRANSFERASE 29 U/L (10-37); BILIRUBIN,TOTAL 0.9 MG/DL (0.1-1.0); BLOOD UREA NITROGEN 67 MG/DL (7-18); BUN/CREATININE RATIO 32.2 (5.4-32.0); CHLORIDE 113 MMOL/L (99-107); CREATININE 2.08 MG/DL (0.60-1.10); GLUCOSE 109 MG/DL (70-104); LIPASE < 50 U/L (73-393); MAGNESIUM 1.9 MG/DL (1.5-2.4); PHOSPHORUS 3.2 MG/DL (2.3-4.5); POTASSIUM 3.5 MMOL/L (3.5-5.1); SODIUM 151 MMOL/L (135-145); TOTAL CARBON DIOXIDE 34.2 MMOL/L (24-32); TOTAL PROTEIN 5.4 G/DL (6.4-8.2); eGFR 33 ML/MIN
--- NOTE | 2019-07-02 06:51 | NUR ---
Patient in room ICU 2044. I have received report from IRAJ Betts and had the opportunity to ask questions and assume patient care.
[2019-07-02] MEDS: K, MAG and/or Phos replacement - Verify level? MC SCH (08:00)
[2019-07-02] MEDS: furosemide 10 MG/1 ML 10ml inj IV SCH ×2 (08:00→21:08)
[2019-07-02] MEDS: clindamycin-Cleocin 900mg/D5W 50 ML IV SCH ×2 (08:46→16:19)
[2019-07-02] MEDS: lactobacillus rhamnosus 10,000 MMU CELLS/CAPSULE PO SCH ×2 (08:47→21:08)
[2019-07-02] MEDS: folic acid 1mg tablet PO SCH (08:47)
[2019-07-02] MEDS: tamsulosin 0.4mg capsule PO SCH (08:47)
[2019-07-02] MEDS: pantoprazole 40 MG vial IV SCH (08:47)
[2019-07-02] MEDS: thiamine 100mg tablet PO SCH (08:47)
[2019-07-02] MEDS: multivitamins, therapeutics tablet PO SCH (08:47)
--- NOTE | 2019-07-02 11:48 | NUR ---
Reassessment: Pt tolerating TF at goal. Na 151 today receiving 200 Q4 water flushes. Per MD note; continue care for 24 hours and re-evaluate comfort care possibility per family wishes. LBM 06/30. Will continue to monitor for changes in code status and additional hydration needs. Rec: 1. NGTF using Glucerna 1.2 at 60ml/hr goal; to provide 1440ml fluid, 1166ml free water, 1728kcals, and 86g protein. TF to advance by 10 mL/hr Q12H as tolerated per MD 2. additional water flush 200ml Q4H 3. PALB Q /; daily wts 4. routine bowel care 5. routine thiamine/folic/MVI given etoh hx 6. monitor for changes in code status Addendum: 07/02/19 at [address] Amended: Links added.
[2019-07-02] MEDS: dextrose 5%-water 1,000 ML IV SCH ×3 (12:41→23:50)
[2019-07-02] MEDS: vancomycin/NS 1 GM ADD-VANTAGE 250 ML IV SCH (13:43)
--- NOTE | 2019-07-02 16:44 | NUR ---
was informed by relief RN after lunch break that pt. had blood cultures come back positive in his R hand for gram (+) cocci. Informed Dr. Varela after receiving the new. no new orders at this time.
--- NOTE | 2019-07-02 18:30 | NUR ---
Patient in room ICU 2044. I have received report from Bel GALO and had the opportunity to ask questions and assume patient care. Addendum: 07/02/19 at 8 by Leeann Colby RN Amended: Links added.
--- NOTE | 2019-07-02 18:37 | NUR ---
Problems reprioritized. Patient report given, questions answered & plan of care reviewed with IRAJ Bradshaw.
[2019-07-02] MEDS: insulin glargine (Lantus) pen - multi-dose SQ SCH (21:11)
--- NOTE | 2019-07-02 22:45 | NUR ---
Patient in room ICU 2044. I have received report from shaye cutler and had the opportunity to ask questions and assume patient care.
--- NOTE | 2019-07-02 22:52 | NUR ---
Problems reprioritized. Patient report given, questions answered & plan of care reviewed with Savannah GALO.
[2019-07-03] VITALS (24 sets, daily range): BP systolic 74–98; BP diastolic 40–58
[2019-07-03] MEDS: clindamycin-Cleocin 900mg/D5W 50 ML IV SCH ×3 (00:19→16:24)
[2019-07-03] MEDS: insulin regular, human U-100 3ml vial - multi-dose SQ SCH ×4 (02:48→21:14)
[2019-07-03] MEDS: morphine 2 MG/ML inj. syringe IV PRN ×2 (02:49→13:00)
[2019-07-03] MEDS: albuterol 2.5 MG/3 ML nebule NEB SCH ×6 (03:09→23:40)
[2019-07-03] MEDS: acetylcysteine 200 MG/ml 4ml vial INH SCH ×7 (03:09→23:41)
[2019-07-03 05:05] LABS: BASOPHILS % (AUTO) 0.8 % (0-1); EOSINOPHILS % (AUTO) 0.6 % (0-6); HEMOGLOBIN 8.7 g/dl (14.0-17.9); LYMPHOCYTES # (AUTO) 0.7 X10'3 (1.1-4.8); LYMPHOCYTES % (AUTO) 12.2 % (21-51); MEAN CORPUSCULAR HGB CONC 34.9 g/dL (33.0-36.5); MEAN CORPUSCULAR VOLUME 85.9 FL (78-98); MONOCYTES # (AUTO) 0.2 X10'3 (0-0.9); MONOCYTES % (AUTO) 3.4 % (2-12); NEUTROPHILS # (AUTO) 4.7 X10'3 (1.8-7.7); PLATELET COUNT 79 X10'3 (140-440); RED BLOOD COUNT 2.91 X10'6 (4.70-6.10); RED CELL DISTRIBUTION WIDTH 13.4 % (11.5-14.5); WHITE BLOOD COUNT 5.7 X10'3 (4.5-11.0)
[2019-07-03 05:30] LABS: ALANINE AMINOTRANSFERASE 22 U/L (12-78); ALBUMIN 1.2 G/DL (3.4-5.0); ALBUMIN/GLOBULIN RATIO 0.3 (1.1-1.5); ALKALINE PHOSPHATASE 316 IU/L (46-116); ANION GAP 4 (8-16); ASPARTATE AMINO TRANSFERASE 30 U/L (10-37); BILIRUBIN,TOTAL 0.9 MG/DL (0.1-1.0); BLOOD UREA NITROGEN 65 MG/DL (7-18); BUN/CREATININE RATIO 32.5 (5.4-32.0); CALCIUM 8.3 MG/DL (8.5-10.1); CHLORIDE 106 MMOL/L (99-107); GLUCOSE 111 MG/DL (70-104); MAGNESIUM 1.8 MG/DL (1.5-2.4); PHOSPHORUS 2.8 MG/DL (2.3-4.5); POTASSIUM 3.4 MMOL/L (3.5-5.1); SODIUM 143 MMOL/L (135-145); TOTAL CARBON DIOXIDE 33.1 MMOL/L (24-32); TOTAL PROTEIN 5.5 G/DL (6.4-8.2); eGFR 34 ML/MIN
[2019-07-03] MEDS: dextrose 5%-water 1,000 ML IV SCH ×3 (06:06→17:22)
--- NOTE | 2019-07-03 06:37 | NUR ---
Patient in room ICU 2044. I have received report from IRAJ Nuñez and had the opportunity to ask questions and assume patient care.
[2019-07-03] MEDS: tamsulosin 0.4mg capsule PO SCH (08:00)
[2019-07-03] MEDS: pantoprazole 40 MG vial IV SCH (08:21)
[2019-07-03] MEDS: multivitamins, therapeutics tablet PO SCH (08:21)
[2019-07-03] MEDS: lactobacillus rhamnosus 10,000 MMU CELLS/CAPSULE PO SCH ×2 (08:21→21:29)
[2019-07-03] MEDS: thiamine 100mg tablet PO SCH (08:21)
[2019-07-03] MEDS: folic acid 1mg tablet PO SCH (08:21)
[2019-07-03] MEDS: furosemide 10 MG/1 ML 10ml inj IV SCH ×3 (08:24→21:29)
[2019-07-03] MEDS: K, MAG and/or Phos replacement - Verify level? MC SCH (08:44)
[2019-07-03] MEDS: potassium CL 10mEq/100ml bag 100 ML IV PRN ×4 (10:27→17:21)
[2019-07-03] MEDS ORDERED: albumin (human) 25% 100 ML IV solution IV ONE (11:10)
[2019-07-03] MEDS ORDERED: VANCOMYCIN LEVEL IV ONE (12:30)
[2019-07-03] MEDS: dextrose 50%-water 50ml dispensing syringe IV PRN (15:06)
--- NOTE | 2019-07-03 18:24 | NUR ---
Problems reprioritized. Patient report given, questions answered & plan of care reviewed with IRAJ Pollard.
--- NOTE | 2019-07-03 18:45 | NUR ---
Patient in room ICU 2044. I have received report from IRAJ Staples and had the opportunity to ask questions and assume patient care.
[2019-07-03] MEDS: insulin glargine (Lantus) pen - multi-dose SQ SCH (21:17)
--- NOTE | 2019-07-03 23:15 | NUR ---
Patient's blood pressure has been in the mid 50's. I informed COURTNEY Nevarez and no orders were given.
[2019-07-04] VITALS (16 sets, daily range): BP systolic 70–97; BP diastolic 33–50
[2019-07-04] MEDS: clindamycin-Cleocin 900mg/D5W 50 ML IV SCH ×2 (00:21→07:43)
[2019-07-04] MEDS: dextrose 5%-water 1,000 ML IV SCH ×2 (00:27→07:43)
[2019-07-04] MEDS: insulin regular, human U-100 3ml vial - multi-dose SQ SCH ×2 (02:29→08:03)
[2019-07-04] MEDS ORDERED: VANCOMYCIN LEVEL IV ONE (03:00)
[2019-07-04] MEDS: acetylcysteine 200 MG/ml 4ml vial INH SCH ×3 (03:40→11:23)
[2019-07-04] MEDS: albuterol 2.5 MG/3 ML nebule NEB SCH ×3 (03:40→11:23)
[2019-07-04 04:08] LABS: BASOPHILS % (AUTO) 0.3 % (0-1); EOSINOPHILS % (AUTO) 0.5 % (0-6); HEMATOCRIT 23.5 % (42.0-52.0); HEMOGLOBIN 8.1 g/dl (14.0-17.9); LYMPHOCYTES # (AUTO) 0.8 X10'3 (1.1-4.8); MEAN CORPUSCULAR HEMOGLOBIN 29.8 PG (27.0-31.0); MEAN CORPUSCULAR HGB CONC 34.4 g/dL (33.0-36.5); MEAN CORPUSCULAR VOLUME 86.6 FL (78-98); MEAN PLATELET VOLUME 10.5 FL (7.4-10.4); MONOCYTES # (AUTO) 0.2 X10'3 (0-0.9); MONOCYTES % (AUTO) 3.2 % (2-12); NEUTROPHILS # (AUTO) 5.6 X10'3 (1.8-7.7); PLATELET COUNT 99 X10'3 (140-440); RED BLOOD COUNT 2.71 X10'6 (4.70-6.10); RED CELL DISTRIBUTION WIDTH 13.7 % (11.5-14.5); WHITE BLOOD COUNT 6.7 X10'3 (4.5-11.0)
[2019-07-04 04:21] LABS: ALANINE AMINOTRANSFERASE 25 U/L (12-78); ALBUMIN 1.4 G/DL (3.4-5.0); ALBUMIN/GLOBULIN RATIO 0.3 (1.1-1.5); ALKALINE PHOSPHATASE 274 IU/L (46-116); ANION GAP 5 (8-16); ASPARTATE AMINO TRANSFERASE 38 U/L (10-37); BLOOD UREA NITROGEN 60 MG/DL (7-18); BUN/CREATININE RATIO 30.5 (5.4-32.0); CALCIUM 7.7 MG/DL (8.5-10.1); CHLORIDE 95 MMOL/L (99-107); CREATININE 1.97 MG/DL (0.60-1.10); GLUCOSE 165 MG/DL (70-104); MAGNESIUM 1.6 MG/DL (1.5-2.4); PHOSPHORUS 4.4 MG/DL (2.3-4.5); POTASSIUM 3.7 MMOL/L (3.5-5.1); PREALBUMIN 6.7 MG/DL (19-36); SODIUM 134 MMOL/L (135-145); TOTAL CARBON DIOXIDE 33.6 MMOL/L (24-32); TOTAL PROTEIN 5.7 G/DL (6.4-8.2); eGFR 35 ML/MIN
[2019-07-04 04:26] LABS: VANCOMYCIN,TROUGH 21.6 UG/ML (6.0-14.0)
--- NOTE | 2019-07-04 04:36 | NUR ---
I was informed by pharmacy at 5725 that patient's vancomycin trough is 21.6. Addendum: 07/04/19 at 9169 by Atul Benitez RN Doctor is aware that vancomycin trough has been high. Prior vancomycin trough was 29.1
[2019-07-04 04:57] LABS: PLATELET ESTIMATE DECREASED
--- NOTE | 2019-07-04 06:38 | NUR ---
Problems reprioritized. Patient report given, questions answered & plan of care reviewed with IRAJ Albert.
[2019-07-04] MEDS: folic acid 1mg tablet PO SCH (07:40)
[2019-07-04] MEDS: lactobacillus rhamnosus 10,000 MMU CELLS/CAPSULE PO SCH (07:40)
[2019-07-04] MEDS: pantoprazole 40 MG vial IV SCH (07:40)
[2019-07-04] MEDS: furosemide 10 MG/1 ML 10ml inj IV SCH (07:41)
[2019-07-04] MEDS: thiamine 100mg tablet PO SCH (07:41)
[2019-07-04] MEDS: tamsulosin 0.4mg capsule PO SCH (07:42)
[2019-07-04] MEDS: multivitamins, therapeutics tablet PO SCH (07:42)
[2019-07-04] MEDS: K, MAG and/or Phos replacement - Verify level? MC SCH (08:00)
[2019-07-04] MEDS ORDERED: vancomycin/NS 1 GM ADD-VANTAGE 250 ML IV SCH (11:00)
[2019-07-04] MEDS ORDERED: LORazepam 2 mg/ml vial IV PRN (11:50)
[2019-07-04] MEDS ORDERED: morphine 10mg/ml inj. IV PRN (11:50)
--- NOTE | 2019-07-04 12:04 | NUR ---
F/u: Pt has been made DNR w/ comfort care. [facility] 07/02. Will continue to monitor. Rec: 1. bowel care as needed Addendum: 07/04/19 at [address] Amended: Links added.
--- NOTE | 2019-07-04 15:04 | NUR ---
Patient in room ICU 2044. I have received report from Bety GALO from ICU and had the opportunity to ask questions and assume patient care.
--- NOTE | 2019-07-04 16:26 | NUR ---
Per Dr. Varela pt status changed to comfort care today. Pt transferred to room 4008, report given to Anson (RN).
--- NOTE | 2019-07-04 18:26 | NUR ---
Problems reprioritized. Patient report given, questions answered & plan of care reviewed with Krystal.
--- NOTE | 2019-07-04 18:27 | NUR ---
Patient in room ORTHO 4008. I have received report from Anson GALO and had the opportunity to ask questions and assume patient care.
--- NOTE | 2019-07-04 18:52 | NUR ---
Problems reprioritized. Patient report given, questions answered & plan of care reviewed with Laura GALO.
--- NOTE | 2019-07-04 19:01 | NUR ---
Taking patient back and resuming care.
--- NOTE | 2019-07-04 19:34 | NUR ---
Patient at 193. Two nurses present and witnessed his passing.
--- NOTE | 2019-07-04 20:00 | NUR ---
Pt. brother Prakash notified that pt. at. 193.
[2019-07-05] MEDS ORDERED: VANCOMYCIN LEVEL IV ONE (10:30)
== END 2019-07-04 21:00 | disposition expired | DRG 720 ==
LOC: ER 07:43 → ED HOLD 09:43 → EDBEDREQ 11:40 → ICU 2S 12:49 → ORTHO 4S 07-04 15:35
PROC: 06HY33Z Insertion of Infusion Device into Lower Vein, Percutaneous Approach (ICD-10-PCS; 2019-06-25)
PROC: 30233R1 Transfusion of Nonautologous Platelets into Peripheral Vein, Percutaneous Approach (ICD-10-PCS; principal; 2019-06-29)
DX: A41.02 Sepsis due to Methicillin resistant Staphylococcus aureus (principal); R65.21 Severe sepsis with septic shock; G93.40 Encephalopathy, unspecified; E87.2 Acidosis; N17.9 Acute kidney failure, unspecified; E87.0 Hyperosmolality and hypernatremia; J18.9 Pneumonia, unspecified organism; I48.91 Unspecified atrial fibrillation; E11.65 Type 2 diabetes mellitus with hyperglycemia; E86.0 Dehydration; B95.61 Methicillin susceptible Staphylococcus aureus infection as the cause of diseases classified elsewhere; Z66 Do not resuscitate; E78.5 Hyperlipidemia, unspecified; K21.9 Gastro-esophageal reflux disease without esophagitis; F10.20 Alcohol dependence, uncomplicated; N39.0 Urinary tract infection, site not specified; R29.6 Repeated falls; F17.210 Nicotine dependence, cigarettes, uncomplicated; I10 Essential (primary) hypertension; I25.10 Atherosclerotic heart disease of native coronary artery without angina pectoris; K59.00 Constipation, unspecified; N40.0 Benign prostatic hyperplasia without lower urinary tract symptoms; Z86.73 Personal history of transient ischemic attack (TIA), and cerebral infarction without residual deficits; I25.2 Old myocardial infarction; Z95.1 Presence of aortocoronary bypass graft; Z90.49 Acquired absence of other specified parts of digestive tract; Z79.899 Other long term (current) drug therapy; Z79.4 Long term (current) use of insulin
CPT/HCPCS: 36415; 36430; 70450; 71045; 71250; 74018; 80048; 80053; 80202; 81001; 82009; 82140; 82150; 82948; 83036; 83605; 83690; 83735; 83880; 84100; 84132; 84134; 84145; 85025; 85610; 85730; 86885; 86900; 86901; 87040; 87077; 87081; 87088; 87186; 92508; 92616; 93005; 93306; 93971; 94640; 94760; 96365; 97110; 97161; 97530; 99291; C9113; G0378; J0131; J0696; J1644; J1815; J1940; J2060; J2270; J2543; J3370; J3411; J3475; J3480; J3486; J3490; J7030; J7042; J7070; J7120; P9035; P9045; P9047